=== PATIENT | female | born 1945 | race Caucasian/White ===

== ENCOUNTER 2018-08-03 15:50 | Emergency (ER) | payer MEDICARE, BC ==
--- NOTE | 2018-08-03 16:54 | UC ---
Skin Complaint HPI - HPI Summary HPI Summary: 73-year-old female who appears younger than her stated age who saw a red line inside her right cheek and was concerned about that. She's had no known injury. - History of Current Complaint Time Seen by Provider: 08/03/18 16:50 Stated Complaint: ORAL COMPLAINT Hx Obtained From: Patient ?: No Onset/Duration: Gradual Onset, Other - Patient just noticed this line inside her right buccal mucosa today. Skin Exposure Onset/Duration: Hours Ago Timing: Constant Onset Severity: Mild Current Severity: Mild Location: Other - Inside right buccal mucosa. Aggravating Factor(s): Nothing Alleviating Factor(s): Nothing Associated Signs & Symptoms: Positive: Negative PMH/Surg Hx/FS Hx/Imm Hx Previously Healthy: Yes Endocrine History: Dyslipidemia GI/ History: Diverticulitis - Family History Known Family History: Positive: Non-Contributory - Social History Occupation: Retired Review of Systems All Other Systems Reviewed And Are Negative: Yes Skin: Positive: Other - Patient noticed what she calls a red line inside her right cheek and she wanted that checked she denies any injury. Is Patient Immunocompromised?: No Physical Exam Triage Information Reviewed: Yes Appearance: Well-Appearing, No Pain Distress, Well-Nourished Vital Signs Reviewed: Yes ENT: Positive: Other - The patient has a linear bruise approximately 1.0 cm in length with a very small skin abrasion at the edge. No evidence of secondary skin infection. Psychological Exam: Normal Skin: Positive: Other - See notes above. Course/Dx - Course Course Of Treatment: The area of concern I believe is because the patient may have bitten her right cheek at some point. She does not recall any injury however this appears to be a very minor skin abrasion. - Diagnoses Provider Diagnosis: Abrasion Discharge - Sign-Out/Discharge Documenting (check all that apply): Patient Departure All imaging exams completed and their final reports reviewed: No Studies - Discharge Plan Condition: Good Disposition: HOME Patient Education Materials: Abrasion (ED) Referrals: No Primary Care Phys,[facility] [Primary Care Provider] - [facility] [Outside] Additional Instructions: Observe for any worsening symptoms and follow-up with her primary care provider as needed. - Billing Disposition and Condition Condition: GOOD Disposition: Home
[2018-08-03 17:01] VITALS: BP 134/58
== END 2018-08-03 17:08 | disposition home or self-care (01) ==
LOC: UCCORT 15:50
DX: S00.512A Abrasion of oral cavity, initial encounter (principal); X58.XXXA Exposure to other specified factors, initial encounter; Y92.9 Unspecified place or not applicable
CPT/HCPCS: 99201; G0463